=== PATIENT | female | born 1990 | race Caucasian/White ===

== ENCOUNTER 2018-02-17 02:01 | Inpatient (IN) | payer OTHER ==
[~2018-02-17] VITALS: Ht 154.9 cm; Wt 77.1 kg
[2018-02-17 02:57] LABS: ABSOLUTE BASOPHIL COUNT 0 /CUMM (0.0-0.2); ABSOLUTE EOSINOPHIL COUNT 0.1 /CUMM (0.0-0.7); ABSOLUTE GRANULOCYTE CT 6.7 /CUMM (1.4-6.5); ABSOLUTE LYMPH COUNT 1.3 /CUMM (1.2-3.4); ABSOLUTE MONOCYTE COUNT 0.6 /CUMM (0.10-0.60); BASOPHIL % 0.3 % (0.0-2.0); EOSINOPHIL % 0.6 % (0-5); GRANULOCYTE % 76.9 % (42.2-75.2); HEMATOCRIT 32.7 % (37-47); MEAN CORPUSCULAR HGB 30.5 PG (27.0-31.0); MEAN CORPUSCULAR HGB CONC 33.2 G/DL (33.0-37.0); MEAN CORPUSCULAR VOLUME 91.7 FL (81.0-99.0); MEAN PLATELET VOLUME 7.4 FL (7.4-10.4); PLATELET COUNT 159 /CUMM (130-400); RBC DISTRIBUTION WIDTH 14.9 % (11.5-14.5); RED BLOOD CELL CT 3.56 /CUMM (4.20-5.40); WHITE BLOOD CELL COUNT 8.8 /CUMM (4.8-10.8)
[2018-02-17 02:58] VITALS: BP 114/62
--- NOTE | 2018-02-17 08:46 | PN- OBGYN ---
Surgical Brief Attending Note Brief Attending Note: Delayed entry. Patient is a Para 0 at term with uncomplicated who contacted the service at 0030 with beginning of painful contractions. She recalled again at 0138 and they were closer together. She arrived at [facility] and was found to be 4 cm. She was given stadol. Catagory 1 tracing per Nursing. At 445 I was contacted secondary to patient being 6 cm and she requested epidural. Catagory 1 tracing. Expectant management at present until delivery. She is GBBS negative.
--- NOTE | 2018-02-17 13:06 | History & Physical ---
General Information and HPI MD Statement: I have seen and personally examined JOE RODRIGUEZ and documented this H&P. The patient is a 27 year old female at [39] weeks and [6] days gestation who presented with a chief complaint of [labor]. History of Present Illness: this pt is a 27yoG1 llmp 05/14/17 edc 02/18/18 at 39weeks 6days inactive labor. care is complete and rremarkable for persistant right umbilical vein and family history of cardiac defect. Echo wnl. 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 EENTM: Reports: no symptoms. Cardiovascular: Reports: no symptoms. Respiratory: Reports: no symptoms. GI: Reports: no symptoms. Genitourinary: Reports: no symptoms. Musculoskeletal: Reports: no symptoms. Skin: Reports: no symptoms. Neurological/Psychological: Reports: no symptoms. Hematologic/Endocrine: Reports: no symptoms. Immunologic/Allergic: Reports: no symptoms. All Other Systems: Reviewed and Negative Exam & Diagnostic Data Last 24 Hrs of Vital Signs/I&O Vital Signs Date Time Temp Pulse Resp B/P B/P Pulse O2 O2 Flow FiO2 Mean Ox Delivery Rate 02/17 0258 114/62 Intake & Output 02/17 1600 02/17 0800 02/17 0000 Intake Total Output Total Balance Patient 170 lb Weight Obstetric Exam Wgt Gained During : 45 Pelvimetry: gynecoid Dilation (cm): 7 Effacement (%): 100 Station: -2 Membranes: AROM Fluid: light meconium Fundal Height (cm): 41 Multiple Gestation? No Contractions: q3 Infant #1 - FHR Baseline: 135 Category: 1 Estimated Weight: 7.5 Presentation: cephalic Patient for Induction? No Labs Blood Type & Rh: A [pos Antibody Screen: neg Hct/Hgb & Platelets #1: 191 Hct/Hgb & Platelets #2: Rubella: imm VDRL #1: nr VDRL #2: nr HbsAg: neg HIV #1: neg HIV #2 neg 1 Hr P Group B Strep: neg Initial Ultrasound: wnl Anatomy Ultrasound: wnl Ultrasound for EFW: 7 Genetic Testing: neg Last 24 Hrs of Labs/Vignesh: Laboratory Tests 02/17/18 0230: CBC w Diff NO MAN DIFF REQ, RBC 3.56 L, MCV 91.7, MCH 30.5, MCHC 33.2, RDW 14.9 H, MPV 7.4, Gran % 76.9 H, Lymphocytes % 15.0 L, Monocytes % 7.2, Eosinophils % 0.6, Basophils % 0.3, Absolute Granulocytes 6.7 H, Absolute Lymphocytes 1.3, Absolute Monocytes 0.6, Absolute Eosinophils 0.1, Absolute Basophils 0, Urinalysis LIGHT H, Urine Color YEL, Urine Clarity HAZY H, Urine pH 7.0, Ur Specific [place] 1.010, Urine Protein NEG, Urine Ketones NEG, Urine Nitrite NEG, Urine Bilirubin NEG, Urine Urobilinogen 0.2, Ur Leukocyte Esterase NEG, Ur Microscopic SEDIMENT EXAMINED, Urine RBC 3-5, Urine WBC RARE, Ur Epithelial Cells FEW, Urine Bacteria FEW H, Urine Hemoglobin SMALL H, Urine Glucose NEG Microbiology 02/17 0642 URINE ROUT: Urine Culture - COLB Assessment/Plan Assessment/Plan: 39 week labor expectant [facility] at [facility] As Ranked By This Provider Problem List: 1. Core Measures Venous Thromboembolism VTE Risk Factors / No Mechanical VTE Prophylaxis d/t Early Ambulation No VTE Pharm Prophylaxis d/t Bleeding (Active)
--- NOTE | 2018-02-17 17:18 | Labor & Delivery Summary ---
Delivery Summary Vaginal Delivery: Vaginal: vertex Episiotomy/Lacerations: Episiotomy/Lacerations: EPIS + LAC Type: RML + 2ND DEGREE VAGINAL LAC Repair: 3-0 LAYERED Placenta: Placenta: spontanteous, normal, 3 vessel Anesthesia: EPIDURAL Cord PH Value: 7.24 Baby's Weight: 8-4 Additional Comments: Mild SD relieved with gentle downward pressure and McRobert's; tight nucal cord x 1 clamped x2 and cut. Baby to [facility] for resus. Apgars pending at this time
--- NOTE | 2018-02-18 07:44 | PN- Post Delivery/GYN ---
Subjective Subjective: NO C/O Review of Systems: NEG Objective Last 24 Hrs of Vital Signs/I&O VSS AFEBRILE Physical Exam: FF EXT NT Assessment/Plan Assessment/Plan S/P PPD1 STABLE CIRC LATER TODAY DISCHARGE IN AM Problem List: 1.
[2018-02-18] MEDS ORDERED: IBUPROFEN800 M1 PO (07:45)
[2018-02-18] MEDS ORDERED: DOCUSATE SODIU100 M3 PO (07:45)
[2018-02-18 07:52] LABS: ABSOLUTE BASOPHIL COUNT 0 /CUMM (0.0-0.2); ABSOLUTE EOSINOPHIL COUNT 0 /CUMM (0.0-0.7); ABSOLUTE MONOCYTE COUNT 0.8 /CUMM (0.10-0.60); BASOPHIL % 0.2 % (0.0-2.0); PLATELET COUNT 127 /CUMM (130-400)
[2018-02-18 08:23] LABS: ABSOLUTE GRANULOCYTE CT 11.3 /CUMM (1.4-6.5); ABSOLUTE LYMPH COUNT 1.4 /CUMM (1.2-3.4); EOSINOPHIL % 0.2 % (0-5); GRANULOCYTE % 82.9 % (42.2-75.2); HEMATOCRIT 29.1 % (37-47); MEAN CORPUSCULAR HGB CONC 33.4 G/DL (33.0-37.0); MEAN CORPUSCULAR VOLUME 92.9 FL (81.0-99.0); RBC DISTRIBUTION WIDTH 15.1 % (11.5-14.5); RED BLOOD CELL CT 3.14 /CUMM (4.20-5.40)
[2018-02-18 08:30] LABS: WHITE BLOOD CELL COUNT 13.6 /CUMM (4.8-10.8)
== END 2018-02-19 12:50 | DRG 775 ==
LOC: CBCO 02:01 → GNO 02:24
PROVIDERS: Obstetrics & Gynecology
PROC: 0KQM0ZZ Repair Perineum Muscle, Open Approach (ICD-10-PCS; principal; 2018-02-17)
PROC: 10E0XZZ Delivery of Products of Conception, External Approach (ICD-10-PCS; principal; 2018-02-17)
DX: O70.1 Second degree perineal laceration during delivery (principal); Z37.0 Single live birth; O69.1XX0 Labor and delivery complicated by cord around neck, with compression, not applicable or unspecified; Z3A.39 39 weeks gestation of pregnancy; O77.0 Labor and delivery complicated by meconium in amniotic fluid
CPT/HCPCS: GNOS; 36415; 81001; 87086; J0595; J7120